=== PATIENT | male | born 1960 | race Caucasian/White ===

== ENCOUNTER 2017-05-30 03:18 | Emergency (ER) | payer BC ==
--- NOTE | 2017-05-30 03:57 | ER Document Report ---
ED GI/ - General Chief Complaint: Diarrhea Stated Complaint: POSSIBLE DIARRHEA Time Seen by Provider: 05/30/17 03:39 Mode of Arrival: Ambulatory Information source: Patient Notes: Patient states that he had some increased bowel sounds and then had a bowel movement around 11 PM that was bloody diarrhea. Patient states that he had additional bowel movement around 2:30 that was bloody diarrhea. Patient denies any chest pain, lightheadedness, or dizziness. Patient denies any abdominal pain. Patient denies any fever. Patient states that his last colonoscopy was earlier this year and he only had an internal hemorrhoid and a few polyps. TRAVEL OUTSIDE OF THE [place] IN LAST 30 DAYS: No - HPI Patient complains to provider of: Diarrhea. No: Abdominal pain Onset: This evening Timing/Duration: Gradual Quality of pain: No pain Pain Level: Denies Associated symptoms: Blood in stool, Diarrhea. denies: Constipation, Fever, Lightheaded, Urinary hesitancy, Urinary frequency, Urinary retention, Urinary urgency, Vomiting Exacerbated by: Denies Relieved by: Denies Similar symptoms previously: No Recently seen / treated by doctor: No - Related Data Allergies/Adverse Reactions: No Known Allergies Allergy (Unverified 11/22/13 11:08) Past Medical History - General Information source: Patient - Social History Smoking Status: Never Smoker Frequency of alcohol use: None Drug Abuse: None Occupation: contractor sales Lives with: Spouse/Significant other Family History: None Patient has suicidal ideation: No Patient has homicidal ideation: No - Past Medical History Cardiac Medical History: Reports: Hx Hypertension Renal/ Medical History: Denies: Hx Peritoneal Dialysis Past Surgical History: Reports: Other - detached retina Review of Systems - Review of Systems Constitutional: No symptoms reported. denies: Fever, Recent illness EENT: No symptoms reported Cardiovascular: No symptoms reported. denies: Chest pain, Dizziness, Lightheaded Respiratory: No symptoms reported. denies: Cough, Short of breath Gastrointestinal: Diarrhea, Rectal bleeding. denies: Abdominal pain, Vomiting Genitourinary: No symptoms reported Male Genitourinary: No symptoms reported Musculoskeletal: No symptoms reported. denies: Back pain Skin: No symptoms reported Hematologic/Lymphatic: No symptoms reported Neurological/Psychological: No symptoms reported Physical Exam - Vital signs Vitals: Temp Pulse Resp BP Pulse Ox 98.4 F 81 16 136/92 H 94 05/30/17 03:28 05/30/17 03:28 05/30/17 03:28 05/30/17 03:28 05/30/17 03:28 - General General appearance: Appears well, Alert In distress: None - HEENT Head: Normocephalic Eyes: Other - right sclera injected - Respiratory Respiratory status: No respiratory distress Chest status: Nontender Breath sounds: Normal. No: Rales, Rhonchi, Stridor, Wheezing Chest palpation: Normal - Cardiovascular Rhythm: Regular Heart sounds: S1 appreciated, S2 appreciated Murmur: No - Abdominal Inspection: Obese Distension: No distension Bowel sounds: Normal Tenderness: Nontender Organomegaly: No organomegaly - Rectal Tenderness: No Stool: Bloody, See lab result Hemorrhoids: None Prostate: Normal Notes: PCT Yeimy as standby - Back Back: Normal, Nontender. No: CVA tenderness - Extremities General upper extremity: Normal inspection, Normal ROM General lower extremity: Normal inspection, Normal ROM - Neurological Neuro grossly intact: Yes Cognition: Normal Jojo Coma Scale Eye Opening: Spontaneous Jojo Coma Scale Verbal: Oriented Jojo Coma Scale Motor: Obeys Commands Jojo Coma Scale Total: 15 - Psychological Associated symptoms: Normal affect, Normal mood - Skin Skin Temperature: Warm Skin Moisture: Dry Skin Color: Normal Course - Re-evaluation Re-evalutation: 05/30/17 04:[address] Peralta and reviewed patient's diagnostic workup. Recommends outpatient follow-up as soon as possible with their GI doctor. Discussed worsening signs or symptoms that patient should return immediately for. Patient verbalized understanding and agrees with plan of care - Vital Signs Vital signs: Temp Pulse Resp BP Pulse Ox 97.9 F 83 18 120/87 H 96 05/30/17 05:08 05/30/17 05:08 05/30/17 05:08 05/30/17 05:08 05/30/17 05:08 - Laboratory Result Diagrams: 05/30/17 04:04 05/30/17 04:04 Laboratory results interpreted by me: 05/30/17 05/30/17 04:04 04:04 WBC 11.2 H RBC 5.67 H Chloride 108 H Glucose 122 H Labs- Entire Visit 05/30/17 05/30/17 05/30/17 03:47 04:04 04:04 WBC 11.2 H RBC 5.67 H Hgb 16.8 Hct 50.0 MCV 88 MCH 29.7 MCHC 33.6 RDW 13.6 Plt Count 238 Seg Neutrophils % 60.2 Lymphocytes % 27.7 Monocytes % 9.0 Eosinophils % 2.5 Basophils % 0.6 Absolute Neutrophils 6.8 Absolute Lymphocytes 3.1 Absolute Monocytes 1.0 Absolute Eosinophils 0.3 Absolute Basophils 0.1 PT INR APTT Sodium 143.0 Potassium 4.2 Chloride 108 H Carbon Dioxide 24 Anion Gap 11 BUN 14 Creatinine 1.00 Est GFR ( Amer) > 60 Est GFR (Non-Af Amer) > 60 Glucose 122 H Calcium 9.5 Total Bilirubin 0.5 Direct Bilirubin 0.4 Indirect Bilirubin Not Reportable Neonat Total Bilirubin Not Reportable AST 22 ALT 47 Alkaline Phosphatase 91 Total Protein 6.6 Albumin 4.1 Stool Occult Blood POSITIVE 05/30/17 04:04 WBC RBC Hgb Hct MCV MCH MCHC RDW Plt Count Seg Neutrophils % Lymphocytes % Monocytes % Eosinophils % Basophils % Absolute Neutrophils Absolute Lymphocytes Absolute Monocytes Absolute Eosinophils Absolute Basophils PT 11.8 INR 0.81 APTT 26.4 Sodium Potassium Chloride Carbon Dioxide Anion Gap BUN Creatinine Est GFR ( Amer) Est GFR (Non-Af Amer) Glucose Calcium Total Bilirubin Direct Bilirubin Indirect Bilirubin Neonat Total Bilirubin AST ALT Alkaline Phosphatase Total Protein Albumin Stool Occult Blood Discharge - Discharge Clinical Impression: Bloody diarrhea Condition: Stable Disposition: HOME, SELF-CARE Instructions: Rectal Bleeding, Unclear Cause ([facility]) Additional Instructions: Return immediately for any new or worsening symptoms: Increased or continued bleeding, abdominal pain, lightheadedness, dizziness, or any concerning symptoms Followup with your primary care provider, call tomorrow to make a followup appointment Follow-up with your asset specialist, call today for follow-up appointment Referrals: SRIDHAR TORRES MD [Primary Care Provider] - Follow up as needed ANEL WHITAMN MD [ACTIVE STAFF] - Follow up as needed RILEY BLACKWOOD MD [ACTIVE STAFF] - Follow up tomorrow
[2017-05-30 04:11] LABS: ABSOLUTE BASOPHILS # (AUTO) 0.1 10^3/uL (0.0-0.2); ABSOLUTE EOSINOPHILS # (AUTO) 0.3 10^3/uL (0.0-0.6); ABSOLUTE LYMPHOCYTES (AUTO) 3.1 10^3/uL (0.5-4.7); ABSOLUTE NEUT (AUTO) 6.8 10^3/uL (1.7-8.2); BASOPHILS % (AUTO) 0.6 % (0-2); EOSINOPHILS % (AUTO) 2.5 % (0-6); HEMOGLOBIN 16.8 g/dL (13.5-17.0); HGB HCT DIFFERENCE 0.4; LYMPHOCYTES % (AUTO) 27.7 % (13-45); MEAN CORPUSCULAR HEMOGLOBIN 29.7 pg (27.0-33.4); MEAN CORPUSCULAR HGB CONC 33.6 g/dL (32.0-36.0); MEAN CORPUSCULAR VOLUME 88 fl (80-97); RED BLOOD COUNT 5.67 10^6/uL (4.35-5.55); RED CELL DISTRIBUTION WIDTH 13.6 % (11.5-14.0); SEGMENTED NEUTROPHILS % (AUTO) 60.2 % (42-78); WHITE BLOOD COUNT 11.2 10^3/uL (4.0-10.5)
[2017-05-30 04:24] LABS: PARTIAL THROMBOPLASTIN TIME 26.4 SEC (23.5-35.8); PROTHROMBIN TIME 11.8 SEC (11.4-15.4)
[2017-05-30 04:26] LABS: ALANINE AMINOTRANSFERASE 47 U/L (21-72); ALBUMIN 4.1 g/dL (3.5-5.0); ALKALINE PHOSPHATASE 91 U/L (38-126); ANION GAP 11 (5-19); ASPARTATE AMINO TRANSFERASE 22 U/L (17-59); BILIRUBIN,DIRECT 0.4 mg/dL (0.0-0.4); BILIRUBIN,TOTAL 0.5 mg/dL (0.2-1.3); BLOOD UREA NITROGEN 14 mg/dL (7-20); CALCIUM 9.5 mg/dL (8.4-10.2); CARBON DIOXIDE 24 mmol/L (22-30); CHLORIDE 108 mmol/L (98-107); GLUCOSE 122 mg/dL (75-110); POTASSIUM 4.2 mmol/L (3.6-5.0); TOTAL PROTEIN 6.6 g/dL (6.3-8.2)
[2017-05-30 05:10] VITALS: BP 120/87
== END 2017-05-30 05:08 | disposition home or self-care (01) ==
LOC: ER 03:18
DX: R19.7 Diarrhea, unspecified (principal); K92.1 Melena; I10 Essential (primary) hypertension; Z87.19 Personal history of other diseases of the digestive system
CPT/HCPCS: 36415; 80053; 82272; 85025; 85610; 85730; 99284